=== PATIENT | female | born 1980 | race American Indian/Alaskan Native ===

== ENCOUNTER 2017-01-11 15:54 | Emergency (ER) | payer BC ==
[2017-01-11 15:55] VITALS: BMI 34.3
[2017-01-11 16:46] LABS: BASO % 0.6 % (0.0-2.0); EOS # 0.1 K/uL (0.0-0.7); EOS % 1.1 % (0.0-4.0); HEMATOCRIT 35.7 % (34.0-47.0); LYMPH # 2.1 K/uL (1.0-4.3); LYMPH % 26.3 % (20.0-40.0); MEAN CELL VOLUME 84.8 fL (81.0-99.0); MEAN CORPUSCULAR HEMOGLOBIN 27.7 pg (27.0-31.0); MEAN CORPUSCULAR HGB CONC 32.7 g/dL (33.0-37.0); MEAN PLATELET VOLUME 8.6 fL (7.2-11.7); MONO # 0.5 K/uL (0.0-0.8); MONO % 6.6 % (0.0-10.0); RED CELL DISTRIBUTION WIDTH 14.8 % (11.5-14.5); WHITE BLOOD COUNT 8.1 K/uL (4.8-10.8)
--- NOTE | 2017-01-11 16:46 | C.PDOC ---
History Of Present Illness 36 y/o female presents to the ED with complains of vague chest discomfort which spontaneously onset [employer]. Pt has history of anxiety and 10 prior visits with cardiac evaluation, ECHO is last 2 weeks normal. Pt denies SOB, vomiting, palpitations or any other complaints. Time Seen by Provider: 01/11/17 16:09 Chief Complaint (Nursing): Chest Pain History Per: Patient History/Exam Limitations: no limitations Onset/Duration Of Symptoms: Mins Current Symptoms Are (Timing): Still Present Severity: Mild Modifying Factors: None Alleviating Factors: None Recent travel outside of the [place]: No Past Medical History Reviewed: Historical Data, Nursing Documentation, Vital Signs Vital Signs: Last Vital Signs Temp 98.1 F 01/11/17 16:01 Pulse 104 H 01/11/17 16:01 Resp 20 01/11/17 16:01 BP 111/64 01/11/17 16:01 Pulse Ox 97 01/11/17 16:54 - Medical History PMH: Anemia (had blood transfusion), Anxiety, Gastritis (ACID RE.), HTN, Post Traumatic Stress Disorder - [facility] Procedures INJECT/INFUSE NEC (07/30/14) PACKED CELL TRANSFUSION (09/08/13) PSYCHIA INTERV/EVAL NEC (02/16/14) Family History: States: CAD (Mother in 30s) - Social History Hx Tobacco Use: No Hx Alcohol Use: Yes Hx Substance Use: No - Immunization History Hx Tetanus Toxoid Vaccination: No Hx Influenza Vaccination: No Hx Pneumococcal Vaccination: No Review Of Systems Except As Marked, All Systems Reviewed And Found Negative. Cardiovascular: Positive for: Chest Pain. Negative for: Palpitations Respiratory: Negative for: Shortness of Breath Gastrointestinal: Negative for: Vomiting Physical Exam - Physical Exam Appears: Non-toxic, No Acute Distress, Other (obese, black woman) Skin: Warm, Dry, No Rash Head: Atraumatic, Normacephalic Neck: Normal, Normal ROM, Supple Chest: Symmetrical, No Tenderness Cardiovascular: Rhythm Regular, No Murmur Respiratory: Normal Breath Sounds, No Rales, No Rhonchi, No Wheezing Gastrointestinal/Abdominal: Normal Exam, Soft, No Tenderness, Other (large abdomen) Extremity: Normal ROM, Other (Lower extremities obese without edema) Extremity: Bilateral: Atraumatic Pulses: Left Dorsalis Pedis: Normal, Right Dorsalis Pedis: Normal Neurological/Psych: Oriented x3, Normal Speech ED Course And Treatment - Laboratory Results Result Diagrams: 01/11/17 16:40 01/11/17 16:40 Lab Interpretation: Normal (trop/bnp/d-dimer neg.) ECG: Interpreted By Me ECG Rhythm: Sinus Rhythm ECG Interpretation: Normal Rate From EC O2 Sat by Pulse Oximetry: 97 (room air) Pulse Ox Interpretation: Normal - Radiology CXR: Interpreted by Me CXR Interpretation: Yes: No Acute Disease Reevaluation Time: 18:59 Reassessment Condition: Improved (asymptomatic from chest discomfort. Tylenol 975 mg PO for mild headache.) Medical Decision Making Medical Decision Making: Plan: EKG, labs, UA, IV fluids atypical CP, on Amlodipine, normal f/u with cardiology with no pathology known 11 CP w/u with normal results, consider GI source or anxiety Disposition Doctor Will See Patient In The: Office Counseled Patient/Family Regarding: Studies Performed, Diagnosis - Disposition Disposition: HOME/ ROUTINE Disposition Time: 19:00 (') Condition: GOOD - Clinical Impression Clinical Impression: Chest discomfort - Scribe Statement The provider has reviewed the documentation as recorded by the Heather Alberto Provider Attestation: All medical record entries made by the Heather were at my direction and personally dictated by me. I have reviewed the chart and agree that the record accurately reflects my personal performance of the history, physical exam, medical decision making, and the department course for this patient. I have also personally directed, reviewed, and agree with the discharge instructions and disposition.
--- NOTE | 2017-01-11 16:52 | RAD ---
HISTORY: SOB COMPARISON: Chest x-ray performed 05/04/14 TECHNIQUE: Chest, one view. FINDINGS: Examination limited by habitus and hypoinflation. LUNGS: No focal consolidation. Please note that chest x-ray has limited sensitivity for the detection of pulmonary masses. PLEURA: No significant pleural effusion identified. No definite pneumothorax . CARDIOVASCULAR: The cardiomediastinal silhouette appears within normal limits of size. OSSEOUS STRUCTURES: No acute osseous abnormality identified. VISUALIZED UPPER ABDOMEN: Unremarkable. OTHER FINDINGS: None. IMPRESSION: No focal consolidation, significant pleural effusion, or definite pneumothorax identified.
[2017-01-11 16:55] LABS: CHLORIDE 99 mmol/L (98-107); POTASSIUM 4.9 mmol/L (3.6-5.2); SODIUM 135 mmol/L (132-148)
[2017-01-11 16:58] LABS: ALB/GLOB RATIO 1.1 (1.0-2.1); ALKALINE PHOSPHATASE 40 U/L (38-126); ALT/SGPT 35 U/L (9-52); AST/SGOT 42 U/L (14-36); BILIRUBIN,TOTAL 0.8 mg/dL (0.2-1.3); BLOOD UREA NITROGEN 10 mg/dL (7-17); CARBON DIOXIDE 27 mmol/L (22-30); GFR AFRICAN-AMERICAN > 60; GLUCOSE,RANDOM 99 mg/dL (65-105); TOTAL PROTEIN 7.7 g/dL (6.3-8.3)
[2017-01-11 16:59] LABS: CALCIUM 8.5 mg/dl (8.6-10.4)
[2017-01-11] MEDS ORDERED: Naloxone 0.4 mg/ml Inj (Adult) ONE (17:40)
[2017-01-11 18:03] LABS: RBC URINE 16 /hpf (0-3); URINE BACTERIA FEW (<OCC); URINE BILIRUBIN NEGATIVE (NEGATIVE); URINE BLOOD 3+ (NEGATIVE); URINE COLOR Yellow (YELLOW); URINE GLUCOSE (UA) NORMAL (Normal); URINE KETONE TRACE mg/dL (NEGATIVE); URINE LEUKOCYTE ESTERASE 1+ Leu/uL (Negative); URINE PROTEIN 1+ mg/dL (NEGATIVE); URINE UROBILINOGEN NORMAL mg/dL (0.2-1.0); WBC URINE 11 /hpf (0-5)
[2017-01-11 19:16] VITALS: BP 122/84; PULSE 88; RESP 10; TEMP 98; O2SAT 98
--- NOTE | 2017-01-12 10:19 | CARD ---
APPROVED REPORT EKG Measurement Heart [id number] <Conclusion> Normal sinus rhythm Nonspecific T wave abnormality Prolonged QT Abnormal ECG
== END 2017-01-11 19:20 | disposition home or self-care (01) ==
LOC: C.ER 15:54
DX: R07.89 Other chest pain (principal)
CPT/HCPCS: 71010; 80053; 81001; 83880; 84484; 84703; 85025; 85378; 93005; 99285; G0480